=== PATIENT | female | born 1965 | race Caucasian/White ===

== ENCOUNTER 2023-02-27 15:24 | Emergency (ER) | payer BC ==
[2023-02-27] MEDS ORDERED: Hydromorphone 1 mg/ml Injection IV ONE ×4 (16:02→22:09)
[2023-02-27 16:06] VITALS: TEMP 98
[2023-02-27] MEDS ORDERED: Zofran 4 MG/2 ML VIAL ONE (16:15)
[2023-02-27] MEDS ORDERED: Zofran 4 MG/2 ML VIAL IV ONE (16:15)
[2023-02-27] MEDS ORDERED: Hydromorphone 1 mg/ml Injection ONE ×4 (16:15→22:13)
[2023-02-27] MEDS ORDERED: Sodium Chloride 0.9% 1000 ML 1,000 ML ONE ×2 (16:16→23:57)
[2023-02-27] MEDS: Sodium Chloride 0.9% 1000 ML 1,000 ML IV SCH ×2 (16:18→23:58)
[2023-02-27 16:21] LABS: Absolute Neutrophil Ct (ANC) 3.83 x10^3/uL (1.4-6.9); BASOPHIL % 0.6 % (0.0-0.4); Basophil (Absolute #) 0.04 x10^3/uL (0-0.4); Eosinophil % 1.3 % (0.00-5.0); Eosinophil (Absolute #) 0.08 x10^3/uL (0-0.5); Hematocrit 33.6 % (35-47); IMMATURE GRAN # 0.01 x10^3u/L (0.00-0.03); IMMATURE GRAN % 0.2 % (0.00-0.4); Lymphocyte (Absolute #) 1.77 x10^3/uL (1.0-4.6); Lymphocytes % 28.7 % (24.0-44.0); Mean Corpuscular Hemoglobin 23.2 pg (26-32); Mean Corpuscular Hgb Concent. 29.8 g/dL (32-36); Mean Platelet Volume 11.4 fL (7.5-11.0); Monocyte (Absolute #) 0.43 x10^3/uL (0.0-1.3); Neutrophil % 62.2 % (36.0-66.0); Platelet Count 198 x10^3/uL (150-450); Red Blood Count 4.31 x10^6/uL (4.1-5.4); Red Cell Distribution Width 17.4 % (11.5-14.0); White Blood Count 6.2 x10^3/uL (4.0-10.5)
[2023-02-27 16:23] LABS: Erythrocyte Sedimentation Rate 8 mm/hr (0-20)
--- NOTE | 2023-02-27 16:34 | XRAY ---
Indication: Chest pain. Cough. Comparison: August 14, 2015 Portable chest demonstrates new subtle hazy left suprahilar interstial alveolar opacity, possible pneumonia in right clinical setting. Otherwise normal heart and bony thorax.
[2023-02-27 16:36] LABS: ALBUMIN 3.6 g/dL (3.5-5.0); ANION GAP 11.1 MEQ/L (5-15); BILIRUBIN,TOTAL 0.6 mg/dL (0.2-1.3); Calcium 8.7 mg/dL (8.4-10.2); Creatinine 1 0.63 mg/dL (0.52-1.04); EST GLOMERULAR FILTRATION RATE 104.1 ML/MIN; MAGNESIUM 1.9 mg/dL (1.6-2.3); Potassium 3.4 mmol/L (3.5-5.1); Total Protein 6.5 g/dL (6.3-8.2)
[2023-02-27 16:41] LABS: D-DIMER QUANTITATIVE 0.57 mg/L (0.0-0.50); INR 0.94 (0.8-3.0); PROTIME 10.3 SECONDS (9.4-12.5); PTT 26.9 SECONDS (25.1-36.5)
[2023-02-27 16:50] LABS: Slide Review 1 YES
[2023-02-27] MEDS ORDERED: solu-MEDROL 125 MG, Sterile H2O 10 ml 2 ML IV ONE ×2 (17:07)
[2023-02-27] MEDS ORDERED: BENADRYL 50 MG/ML IV ONE (17:09)
[2023-02-27] MEDS ORDERED: Sterile H2O 10 ml IJ ONE (17:21)
[2023-02-27] MEDS ORDERED: solu-MEDROL ONE (17:21)
[2023-02-27] MEDS ORDERED: BENADRYL 50 MG/ML ONE (17:21)
--- NOTE | 2023-02-27 18:28 | ERPHSYRPT ---
<NEISHA BUSTAMANTE - Last Filed: 02/27/23 18:41> - History of Present Illness Time Seen by Provider: 02/27/23 16:15 Historian: patient, family Exam Limitations: no limitations (Patient is a 58-year-old white female who presents to the ER with the severe right sided chest pain pleuritic in nature. [facility] and had test for COVID RSV and flu were all negative. She is nauseous but denies vomiting she appears to be in severe pain.) Patient Subjective Stated Complaint: [facility] and was found negative for covid/rsv/flu and then she left and began having severe pain in the right sided chest and down her right side Triage Nursing Assessment: Pt brought to the ER by her , hypertensive, rates pain as 9/10, gaurding chest and right side, rolled up into a ball on the bed, pulses normal, skin n/w/d, nauseous but denies vomiting, EKG sinus rhythm, appears to be in severe pain Physician History: Patient is a 58-year-old white female who presents after having cold symptoms for several days. [facility] test for COVID flu and RSV all negative. She grew worse this afternoon with severe right-sided chest pain pleuritic in nature. Timing/Duration: today Activities at Onset: none Quality: stabbing Location: other Chest Pain Radiation: no radiation Severity of Pain-Max: severe Severity of Pain-Current: mild Modifying Factors: Improves With: breathing, movement Associated Symptoms: nausea Nitro Today/Relief: no nitro taken today Aspirin Treatment Today: no aspirin today Allergies/Adverse Reactions: prednisone Allergy (Verified 02/27/23 16:06) Home Medications: Atorvastatin Calcium [Lipitor 40Mg] 40 mg PO DAILY 02/27/23 [History] Dapagliflozin Propanediol [Farxiga] 10 mg PO DAILY 02/27/23 [History] Dulaglutide [Trulicity] 1.5 mg SQ WEEKLY 02/27/23 [History] Ergocalciferol (Vitamin D2) [Vitamin D2] 1,250 mcg PO UD 02/27/23 [History] Ferric Maltol [Accrufer] 30 mg PO BID 02/27/23 [History] Insulin Degludec [Tresiba] 18 unit SQ DAILY 02/27/23 [History] Lisinopril 10 mg [Zestril 10 MG] 5 mg PO DAILY 02/27/23 [History] Lisinopril 5 mg [Zestril 5 MG] 5 mg PO DAILY 02/27/23 [History] Sertraline HCl 50 mg [Zoloft 50 mg Tablet] 50 mg PO DAILY 02/27/23 [History] Hx Tetanus, Diphtheria Vaccination/Date Given: (unknown) Hx Influenza Vaccination/Date Given: Yes Hx Pneumococcal Vaccination/Date Given: (unknown) Travel Risk - International Travel Have you traveled outside of the country in past 3 weeks: No - Coronavirus Screening Are you exhibiting any of the following symptoms?: No - Vaccine Status Have you recieved a Covid-19 vaccination: Yes Facilities Custodian: Moderna - Vaccination Dates Date of 2cond Vaccination (if applicable): 2020 - Review of Systems Constitutional: No Fever, No Chills Eyes: No Symptoms Ears, Nose, & Throat: No Symptoms Respiratory: Cough, Dyspnea Cardiac: Chest Pain, No Edema, No Syncope Abdominal/Gastrointestinal: No Abdominal Pain, No Nausea, No Vomiting, No Diarr hea Genitourinary Symptoms: No Dysuria Musculoskeletal: No Back Pain, No Neck Pain Skin: No Rash Neurological: No Dizziness, No Focal Weakness, No Sensory Changes Psychological: No Symptoms Endocrine: No Symptoms All Other Systems: Reviewed and Negative - Past Medical History Pertinent Past Medical History: Yes ( ) Neurological History: No Pertinent History ENT History: No Pertinent History Cardiac History: Congestive Heart Failure, High Cholesterol, Hypertension Respiratory History: No Pertinent History, Asthma Endocrine Medical History: Diabetes Type II Musculoskeletal History: No Pertinent History GI Medical History: No Pertinent History, GERD History: No Pertinent History Psycho-Social History: No Pertinent History Female Reproductive Disorders: No Pertinent History Other Medical History: HAD COVID APPROX. 1 YEAR AGO AND HAS SOME RESIDUAL DEFICITS FROM THIS AFFECTING MULTIPLE SYMPTOMS - Past Surgical History Past Surgical History: Yes (cant remember any surgeries) Neuro Surgical History: No Pertinent History Cardiac: No Pertinent History Respiratory: No Pertinent History Gastrointestinal: Cholecystectomy Genitourinary: No Pertinent History Musculoskeletal: Orthopedic Surgery Female Surgical History: No Pertinent History Other Surgical History: cyst removed from finger, neuroma removed from r foot, back surgery d/t surgery - Social History Smoking Status: Never smoker Exposure to second hand smoke: No Alcohol Use: None (cant remember) Drug Use: none Patient Lives Alone: No Significant Family History: other (cant remember) - Physical Exam General Appearance: moderate distress, alert Eye Exam: PERRL/EOMI, eyes nml inspection Ears, Nose, Throat Exam: normal ENT inspection, moist mucous membranes Neck Exam: normal inspection, non-tender, supple, full range of motion Respiratory Exam: normal breath sounds, lungs clear, No respiratory distress Cardiovascular Exam: regular rate/rhythm, normal heart sounds Gastrointestinal/Abdomen Exam: soft, No tenderness, No mass Back Exam: normal inspection, No CVA tenderness, No vertebral tenderness Extremity Exam: normal inspection, normal range of motion Neurologic Exam: alert, oriented x 3, cooperative, normal mood/affect, sensation nml, No motor deficits Skin Exam: normal color, warm, dry SpO2 Interpretation: normal SpO2: 96 O2 Delivery: Room Air - Course Nursing assessment & vital signs reviewed: Yes EKG Interpreted by Me: RATE (65), Sinus Rhythm, NORMAL AXIS, NORMAL INTERVALS, Non-specific ST Changes, Other (Low voltage in the precordial leads poor R wave progression) - Radiology Exams Chest X-ray Interpretation: Reviewed by me (Chest x-ray showed a left suprahilar opacity questionable for pneumonia.) - Departure Departure Disposition: Home Clinical Impression: Left upper lobe pneumonia, Chest pain, pleuritic, Intra-abdominal free air of unknown etiology Condition: Fair Critical Care Time: No Referrals: SURESH CACERES, [facility] [Primary Care Provider] - Follow up/PCP as directed Instructions: Pneumonia, Adult (DC) <ANGELES MENDOZA - Last Filed: 02/27/23 23:10> - Nursing Vital Signs Nursing Vital Signs: Initial Vital Signs Temperature 98.0 F 02/27/23 15:57 Pulse Rate 60 02/27/23 15:57 Respiratory Rate 10 L 02/27/23 15:57 Blood Pressure 158/49 02/27/23 15:57 O2 Sat by Pulse Oximetry 100 02/27/23 15:57 Pain Scale Pain Intensity 8 Ordered Tests: Active Orders 24 hr Category Date Time Status EKG-ER Only STAT Care 02/27/23 15:59 Active IV Insertion STAT Care 02/27/23 15:59 Active IV Insertion-2nd Peripheral STAT Care 02/27/23 22:11 Active Oxygen-ED Only Nasal Cannula 2 lpm Care 02/27/23 22:34 Active ABDOMEN AND PELVIS W/0 CONTRAS [CT] Stat Exams 02/27/23 20:25 Taken CHEST 1 VIEW (PORTABLE) Stat Exams 02/27/23 16:13 Completed CHEST WITH CONTRAST [CT] Stat Exams 02/27/23 16:54 Taken BLOOD CULTURE Stat Lab 02/27/23 22:45 Received CBC W DIFF Stat Lab 02/27/23 15:59 Completed CK-Creatinine Phosphokinase Stat Lab 02/27/23 16:15 Completed CMP Stat Lab 02/27/23 16:15 Completed D-DIMER QUANTITATIVE Stat Lab 02/27/23 16:15 Completed Erythrocyte Sedimentation Rate Stat Lab 02/27/23 15:59 Completed LIPASE Stat Lab 02/27/23 16:15 Completed Lactic Acid Stat Lab 02/27/23 16:15 Completed MAGNESIUM Stat Lab 02/27/23 16:15 Completed NT PRO BNPII Stat Lab 02/27/23 16:15 Completed PROTIME WITH INR Stat Lab 02/27/23 16:15 Completed PTT Stat Lab 02/27/23 16:15 Completed TROPONIN Q4H Lab 02/27/23 16:15 Completed TROPONIN Q4H Lab 02/27/23 21:00 Completed TROPONIN Q4H Lab 02/28/23 00:00 Ordered UA W/RFX UR CULTURE Stat Lab 02/27/23 16:00 Ordered Medication Summary Generic Name Dose Route Start Last Admin Trade Name Freq PRN Reason Stop Dose Admin Sodium Chloride 1,000 mls @ 100 mls/hr 02/27/23 16:00 02/27/23 16:18 Sodium Chloride 0.9% 1000 Ml IV 03/29/23 15:59 100 mls/hr .Q10H ZAC Administration Piperacillin Sod/Tazobactam 100 mls @ 200 mls/hr 02/27/23 22:49 02/27/23 22:59 Sod 3.375 gm/ Sodium Chloride IV 02/27/23 23:18 200 mls/hr STAT ONE Administration Discontinued Medications Generic Name Dose Route Start Last Admin Trade Name Freq PRN Reason Stop Dose Admin Methylprednisolone Sodium 0 mg 02/27/23 17:07 02/27/23 17:24 Succinate 125 mg/ Sterile IV 02/27/23 17:08 125 mg Water 2 ml STAT ONE Administration Diphenhydramine HCl 50 mg 02/27/23 17:09 02/27/23 17:24 Diphenhydramine Hcl 50 Mg/Ml Vial IV 02/27/23 17:10 50 mg STAT ONE Administration Diphenhydramine HCl Confirm 02/27/23 17:21 Diphenhydramine Hcl 50 Mg/Ml Vial Administered 02/27/23 17:22 Dose 50 mg .ROUTE .STK-MED ONE Hydromorphone HCl 1 mg 02/27/23 16:02 02/27/23 16:19 Hydromorphone 1 Mg/1ml Inj IV 02/27/23 16:03 1 mg STAT ONE Administration Hydromorphone HCl Confirm 02/27/23 16:15 Hydromorphone 1 Mg/1ml Inj Administered 02/27/23 16:16 Dose 1 mg .ROUTE .STK-MED ONE Hydromorphone HCl 1 mg 02/27/23 17:31 02/27/23 17:34 Hydromorphone 1 Mg/1ml Inj IV 02/27/23 17:32 1 mg STAT ONE Administration Hydromorphone HCl Confirm 02/27/23 17:33 Hydromorphone 1 Mg/1ml Inj Administered 02/27/23 17:34 Dose 1 mg .ROUTE .STK-MED ONE Hydromorphone HCl 0.5 mg 02/27/23 19:51 02/27/23 19:58 Hydromorphone 1 Mg/1ml Inj IV 02/27/23 19:52 0.5 mg STAT ONE Administration Hydromorphone HCl Confirm 02/27/23 19:56 Hydromorphone 1 Mg/1ml Inj Administered 02/27/23 19:57 Dose 1 mg .ROUTE .STK-MED ONE Hydromorphone HCl 1 mg 02/27/23 22:09 02/27/23 22:14 Hydromorphone 1 Mg/1ml Inj IV 02/27/23 22:10 1 mg STAT ONE Administration Hydromorphone HCl Confirm 02/27/23 22:13 Hydromorphone 1 Mg/1ml Inj Administered 02/27/23 22:14 Dose 1 mg .ROUTE .STK-MED ONE Sodium Chloride Confirm 02/27/23 22:54 Sodium Chloride 100ml Mini-Bag Plus Administered 02/27/23 22:55 Dose 100 mls @ ud IV .STK-MED ONE Methylprednisolone Sodium Succinate Confirm 02/27/23 17:21 Methylprednis Sod Succ 125 Mg/2 Ml Vial Administered 02/27/23 17:22 Dose 125 mg .ROUTE .STK-MED ONE Ondansetron HCl 4 mg 02/27/23 16:15 02/27/23 16:18 Ondansetron Hcl 4 Mg/2 Ml Vial IV 02/27/23 16:16 4 mg STAT ONE Administration Ondansetron HCl Confirm 02/27/23 16:15 Ondansetron Hcl 4 Mg/2 Ml Vial Administered 02/27/23 16:16 Dose 4 mg .ROUTE .STK-MED ONE Pantoprazole Sodium 40 mg 02/27/23 22:49 02/27/23 22:59 Pantoprazole 40 Mg Vial IV 02/27/23 22:50 40 mg STAT ONE Administration Pantoprazole Sodium Confirm 02/27/23 22:54 Pantoprazole 40 Mg Vial Administered 02/27/23 22:55 Dose 40 mg IV .STK-MED ONE Piperacillin Sod/Tazobactam Sod Confirm 02/27/23 22:54 Piperacillin/Tazobactam Sodium 3.375 Gm Vial Administered 02/27/23 22:55 Dose 3.375 gm IV .STK-MED ONE Sterile Water Confirm 02/27/23 17:21 Water For Injection,Sterile 10 Ml Vial Administered 02/27/23 17:22 Dose 10 ml IJ .STK-MED ONE Lab/Rad Data: Laboratory Result Diagrams 02/27/23 15:59 02/27/23 16:15 Laboratory Results 02/27/23 02/27/23 02/27/23 Range/Units 21:00 16:15 16:15 WBC (4.0-10.5) x10^3/uL RBC (4.1-5.4) x10^6/uL Hgb (12.0-16.0) g/dL Hct (35-47) % MCV (78-100) fL MCH (26-32) pg MCHC (32-36) g/dL RDW (11.5-14.0) % Plt Count (150-450) x10^3/uL MPV (7.5-11.0) fL Gran % (36.0-66.0) % Immature Gran % (Auto) (0.00-0.4) % Nucleat RBC Rel Count (0.00-0.1) % Eos # (Auto) (0-0.5) x10^3/uL Immature Gran # (Auto) (0.00-0.03) x10^3u/L Absolute Lymphs (auto) (1.0-4.6) x10^3/uL Absolute Monos (auto) (0.0-1.3) x10^3/uL Absolute Nucleated RBC (0.00-0.01) x10^3u/L Lymphocytes % (24.0-44.0) % Monocytes % (0.0-12.0) % Eosinophils % (0.00-5.0) % Basophils % (0.0-0.4) % Absolute Granulocytes (1.4-6.9) x10^3/uL Basophils # (0-0.4) x10^3/uL ESR (0-20) mm/hr PT (9.4-12.5) SECONDS INR (0.8-3.0) APTT (25.1-36.5) SECONDS D-Dimer (0.0-0.50) mg/L Sodium (137-145) mmol/L Potassium (3.5-5.1) mmol/L Chloride (98-107) mmol/L Carbon Dioxide (22-30) mmol/L Anion Gap (5-15) MEQ/L BUN (7-17) mg/dL Creatinine (0.52-1.04) mg/dL Estimated GFR ML/MIN Glucose (74-106) mg/dL Lactic Acid (0.4-2.0) Calcium (8.4-10.2) mg/dL Magnesium (1.6-2.3) mg/dL Total Bilirubin (0.2-1.3) mg/dL AST (14-36) U/L ALT (0-35) U/L Alkaline Phosphatase (38-126) U/L Creatine Kinase (30-135) U/L Troponin I < 0.012 < 0.012 (0.000-0.034) ng/mL NT-Pro-B Natriuret Pep 1300 (<300) pg/mL Serum Total Protein (6.3-8.2) g/dL Albumin (3.5-5.0) g/dL Lipase (23-300) U/L Slides for Path Review 02/27/23 02/27/23 02/27/23 Range/Units 16:15 16:15 16:15 WBC (4.0-10.5) x10^3/uL RBC (4.1-5.4) x10^6/uL Hgb (12.0-16.0) g/dL Hct (35-47) % MCV (78-100) fL MCH (26-32) pg MCHC (32-36) g/dL RDW (11.5-14.0) % Plt Count (150-450) x10^3/uL MPV (7.5-11.0) fL Gran % (36.0-66.0) % Immature Gran % (Auto) (0.00-0.4) % Nucleat RBC Rel Count (0.00-0.1) % Eos # (Auto) (0-0.5) x10^3/uL Immature Gran # (Auto) (0.00-0.03) x10^3u/L Absolute Lymphs (auto) (1.0-4.6) x10^3/uL Absolute Monos (auto) (0.0-1.3) x10^3/uL Absolute Nucleated RBC (0.00-0.01) x10^3u/L Lymphocytes % (24.0-44.0) % Monocytes % (0.0-12.0) % Eosinophils % (0.00-5.0) % Basophils % (0.0-0.4) % Absolute Granulocytes (1.4-6.9) x10^3/uL Basophils # (0-0.4) x10^3/uL ESR (0-20) mm/hr PT 10.3 (9.4-12.5) SECONDS INR 0.94 (0.8-3.0) APTT 26.9 (25.1-36.5) SECONDS D-Dimer 0.57 H (0.0-0.50) mg/L Sodium 136 L (137-145) mmol/L Potassium 3.4 L (3.5-5.1) mmol/L Chloride 108 H (98-107) mmol/L Carbon Dioxide 21 L (22-30) mmol/L Anion Gap 11.1 (5-15) MEQ/L BUN 11 (7-17) mg/dL Creatinine 0.63 (0.52-1.04) mg/dL Estimated GFR 104.1 ML/MIN Glucose 136 H (74-106) mg/dL Lactic Acid 1.1 (0.4-2.0) Calcium 8.7 (8.4-10.2) mg/dL Magnesium 1.9 (1.6-2.3) mg/dL Total Bilirubin 0.60 (0.2-1.3) mg/dL AST 37 H (14-36) U/L ALT 32 (0-35) U/L Alkaline Phosphatase 151 H (38-126) U/L Creatine Kinase 70 (30-135) U/L Troponin I (0.000-0.034) ng/mL NT-Pro-B Natriuret Pep (<300) pg/mL Serum Total Protein 6.5 (6.3-8.2) g/dL Albumin 3.6 (3.5-5.0) g/dL Lipase 413 H (23-300) U/L Slides for Path Review 02/27/23 Range/Units 15:59 WBC 6.2 (4.0-10.5) x10^3/uL RBC 4.31 (4.1-5.4) x10^6/uL Hgb 10.0 L (12.0-16.0) g/dL Hct 33.6 L (35-47) % MCV 78.0 (78-100) fL MCH 23.2 L (26-32) pg MCHC 29.8 L (32-36) g/dL RDW 17.4 H (11.5-14.0) % Plt Count 198 (150-450) x10^3/uL MPV 11.4 H (7.5-11.0) fL Gran % 62.2 (36.0-66.0) % Immature Gran % (Auto) 0.2 (0.00-0.4) % Nucleat RBC Rel Count 0.0 (0.00-0.1) % Eos # (Auto) 0.08 (0-0.5) x10^3/uL Immature Gran # (Auto) 0.01 (0.00-0.03) x10^3u/L Absolute Lymphs (auto) 1.77 (1.0-4.6) x10^3/uL Absolute Monos (auto) 0.43 (0.0-1.3) x10^3/uL Absolute Nucleated RBC 0.00 (0.00-0.01) x10^3u/L Lymphocytes % 28.7 (24.0-44.0) % Monocytes % 7.0 (0.0-12.0) % Eosinophils % 1.3 (0.00-5.0) % Basophils % 0.6 (0.0-0.4) % Absolute Granulocytes 3.83 (1.4-6.9) x10^3/uL Basophils # 0.04 (0-0.4) x10^3/uL ESR 8 (0-20) mm/hr PT (9.4-12.5) SECONDS INR (0.8-3.0) APTT (25.1-36.5) SECONDS D-Dimer (0.0-0.50) mg/L Sodium (137-145) mmol/L Potassium (3.5-5.1) mmol/L Chloride (98-107) mmol/L Carbon Dioxide (22-30) mmol/L Anion Gap (5-15) MEQ/L BUN (7-17) mg/dL Creatinine (0.52-1.04) mg/dL Estimated GFR ML/MIN Glucose (74-106) mg/dL Lactic Acid (0.4-2.0) Calcium (8.4-10.2) mg/dL Magnesium (1.6-2.3) mg/dL Total Bilirubin (0.2-1.3) mg/dL AST (14-36) U/L ALT (0-35) U/L Alkaline Phosphatase (38-126) U/L Creatine Kinase (30-135) U/L Troponin I (0.000-0.034) ng/mL NT-Pro-B Natriuret Pep (<300) pg/mL Serum Total Protein (6.3-8.2) g/dL Albumin (3.5-5.0) g/dL Lipase (23-300) U/L Slides for Path Review YES - Progress Progress: re-examined Air Movement: good Progress Note: 02/27/23 20:27 CT of the chest with contrast shows no acute cardiopulmonary process/findings. There are no comparison films. His the study is negative for pulmonary embolus. There is however, a tiny subdiaphragmatic free air and tiny perihepatic fluid concerning for GI perforation. We will order a CT scan of the abdomen pelvis. 02/27/23 21:47 CT scanning of the abdomen pelvis without contrast was interpreted by the radiologist and I reviewed the impression. There is tiny right subdiaphragmatic free air and tiny perihepatic fluid with no clear etiology. ? Gastrointestinal perforation. 02/27/23 22:29 I reexamined this patient and obtained further history. Patient does have p eritoneal signs on abdominal examination. She has had a Liliana-en-Y gastric bypass procedure performed in 2013 at [facility] facility. The patient needs to be evaluated and managed by a bariatric surgeon. She has evidence of free fluid and air underneath the diaphragm and has peritoneal signs. We placed a call to that facility. Her bariatric surgeon moved soon after her surgery and therefore she will be evaluated managed by a different bariatric surgeon. She is aware of this. We are awaiting a callback from the bariatric surgeon on-call. 02/27/23 23:[address] Lubna Schwartz from [facility]. She is a bariatric surgeon at that facility. I reviewed the patient history, presenting complaint, physical findings and workup results with her. I emphasized the patient's examination of positive peritoneal signs of her abdomen. I also reviewed the radiographic and laboratory study results. Their facility does not have any beds. She recommended that I provide the patient with intravenous proton pump inhibitor as well as a dose of Zosyn intravenously. She then referred to me via the transfer center to [facility]. I spoke with Dr. Fletcher. He accept ed the patient in transfer to the emergency department. Our transfer to that facility is to a higher level of care. I reviewed with him the same information I reviewed with Dr. Schwartz. Again, he accepts the patient in transfer. Blood Culture(s) Obtained: Yes Antibiotics given: Yes Counseled pt/family regarding: lab results, diagnosis, rad results Medical Desision Making - Independent Historian Additional History obtained from: Spouse - Diagnostic Testing Diagnostic test were ordered, analyzed, and reviewed by me: Yes Radiological Interpretation: Reviewed by me, Teleradiologist Report - Risk of complications The pt has a high risk of morbidity or mortality based on: Decision regarding hospitilization or escalation of hosp level of care
[2023-02-27] MEDS ORDERED: PIPERACILLIN/TAZOBACTAM 3.375 GM in Sodium Chloride 100ML MINI-BAG PLUS 100 ML IV ONE (22:49)
[2023-02-27] MEDS ORDERED: PROTONIX 40 MG IV IV ONE ×2 (22:49→22:54)
[2023-02-27] MEDS ORDERED: Sodium Chloride 100ML MINI-BAG PLUS 100 ML IV ONE (22:54)
[2023-02-27] MEDS ORDERED: PIPERACILLIN/TAZOBACTAM IV ONE (22:54)
[2023-02-27] MEDS ORDERED: Ativan 2 MG/1 ML VIAL IV ONE (23:10)
[2023-02-27 23:18] VITALS: O2SAT 97
[2023-02-27] MEDS ORDERED: Ativan 2 MG/1 ML VIAL ONE (23:31)
[2023-02-28 00:12] VITALS: BP 178/87; PULSE 85; RESP 20
[2023-02-28 00:30] LABS: Appearance Clear (Clear); Bacteria None Seen /HPF (None Seen); Bilirubin Negative (Negative); Blood Negative (Negative); Epithelial Cells None Seen /HPF (None Seen); Glucose, Urine >=1000 mg/dL (Negative); Hyaline Casts NONE SEEN /LPF (0-2); Ketones 15 (Negative); Leukocyte Esterase Negative (Negative); Nitrite Negative (Negative); Ph 5.5 (4.6-8.0); Protein,Urine Dip Negative (Negative); RBC 0-2 /HPF (0-5); Specific Gravity >=1.030 (1.005-1.030); WBC 0-2 /HPF (0-5)
[2023-02-28 00:31] LABS: ADD URINE CULTURE? NO (NO)
--- NOTE | 2023-02-28 08:42 | XRAY ---
Indication: Chest pain. Elevated d-dimer. Multiple contiguous axial images obtained through the chest using 80 cc Isovue 370 contrast and PE protocol. Comparison: None Good opacification of the pulmonary arteries to include the lobar and segmental branches. No pulmonary embolus. Heart borderline enlarged. Aorta is normal in course and caliber. No pathologic mediastinal/hilar lymphadenopathy. Lungs demonstrates mild bibasilar dependent atelectasis. No suspicious pulmonary mass/nodule, infiltrate, effusion, or pneumothorax. Bony thorax intact. CT abdomen/pelvis reported separately. Impression: Negative pulmonary embolus. No acute cardiopulmonary abnormalities.
--- NOTE | 2023-02-28 08:48 | XRAY ---
Indication: Chest and abdomen pain. Subdiaphragmatic free air and perihepatic fluid seen on same-day CT chest exam. Multiple contiguous axial images obtained through the abdomen and pelvis without contrast. Comparison: None CT chest reported separately. Previous gastric bypass surgery. Noncontrasted stomach and bowel loops appear nonobstructed. Tiny right subdiaphragmatic/perihepatic free air and small perihepatic free fluid concerning for gastrointestinal perforation. Antral stomach and descending duodenum demonstrates mild circumferential bowel wall thickening, best seen on same-day CT chest exam and may represent gastroduodenitis in right clinical setting. Query perforated duodenitis/ulcer. No walled off fluid collection. Both kidneys excrete and contrast adrenal bladder appears unremarkable. Previous cholecystectomy. Remaining liver, pancreas, spleen, adrenal glands, kidneys, ureters, bladder, and uterus are unremarkable. Mild scattered aortoiliac calcifications without AAA. Osseous structures intact. Impression: Tiny right subdiaphragmatic/perihepatic free air and small perihepatic free fluid worrisome for GI perforation. Antral stomach and proximal duodenal circumferential wall thickening. Rule out gastroduodenitis. Perforated duodenitis/ulcer offered for clinical consideration.
== END 2023-02-28 00:05 | disposition short-term general hospital (02) ==
LOC: ED 15:24
DX: J18.9 Pneumonia, unspecified organism (principal); R07.81 Pleurodynia; R93.5 Abnormal findings on diagnostic imaging of other abdominal regions, including retroperitoneum; E78.5 Hyperlipidemia, unspecified; I11.0 Hypertensive heart disease with heart failure; E11.9 Type 2 diabetes mellitus without complications; Z79.84 Long term (current) use of oral hypoglycemic drugs; Z79.85 Long-term (current) use of injectable non-insulin antidiabetic drugs; Z79.4 Long term (current) use of insulin; Z79.899 Other long term (current) drug therapy; Z86.16 Personal history of COVID-19; Z98.84 Bariatric surgery status
CPT/HCPCS: 36000; 36415; 71045; 71260; 74176; 80053; 81001; 82550; 83605; 83690; 83735; 83880; 84484; 85025; 85379; 85610; 85652; 85730; 87040; 93005; 96365; 96374; 96375; 96376; 99285; J1170; J1200; J2060; J2405; J2930